=== PATIENT | male | born 1975 | race Asian ===

== ENCOUNTER 2023-10-06 22:27 | Inpatient (IN) | payer OTHER ==
[~2023-10-06] VITALS: Ht 162.6 cm; Wt 64.1 kg
[2023-10-06] MEDS: levetiracetam inj 1,000 MG in normal saline 100ml IV soln 90 ML IV ONE (08:00)
[2023-10-06 22:48] VITALS: PULSE 130; RESP 24; O2SAT 97
[2023-10-06] MEDS: propofol 1000mg/100ml bottle 100 ML IV SCH ×2 (22:55→23:02)
[2023-10-06] MEDS ORDERED: NORepinephrine 8mg/ 250ml NS 250 ML IV PRN (22:55)
[2023-10-06 22:59] LABS: ABG BASE EXCESS -22.2 mmol/L (-2.0-2.0); ABG OXYGEN SATURATION 92.3 % (94-97); ABG PH (T) 6.909 (7.340-7.440); ABG PO2 (T) 95.1 mmHg (75.0-100.0); ALLEN'S TEST Modified; FCOHb 0.3 % (0.0-3.9); FHHb 7.7 % (0.0-5.0); FMetHb 0.3 % (0.0-1.5); FO2Hb 91.7 % (94-97); MODE VENT - AC; PATIENT TEMPERATURE 35.8; PEEP 5 cm H2O; RESPIRATORY RATE 24 b/min; TIDAL VOLUME 400 mL; TOTAL HEMOGLOBIN 13.4 G/dl (14.0-17.9)
[2023-10-06] MEDS: furosemide 10 MG/1 ML 10ml inj IV ONE ×2 (23:22→23:59)
[2023-10-06] MEDS: labetalol 20mg/4ml (5mg/ml) syringe IV ONE (23:22)
[2023-10-06] MEDS: normal saline 1000ml 1,000 ML IV ONE (23:24)
[2023-10-06 23:28] LABS: BILIRUBIN,URINE NEGATIVE (Neg); CLARITY,URINE SLIGHTLY CLOUDY (Clear); COLOR,URINE STRAW (Yellow); GLUCOSE, URINE 250 mg/dl (Neg); KETONES,URINE NEGATIVE (Neg); LEUKOCYTE ESTERASE ,URINE NEGATIVE (Neg); NITRITES, URINE NEGATIVE (Neg); OCCULT BLOOD,URINE SMALL (Neg); PH,URINE 6.5 (4.8-8.0); PROTEIN,URINE 100 mg/dl (Neg); UROBILINOGEN,URINE 0.2 E.U/dL (0.2-1.0)
[2023-10-06] MEDS: LORazepam 2 mg/ml vial IV ONE ×2 (23:36→23:44)
[2023-10-06] MEDS: sodium bicarbonate (8.4%) inj. 50 MEQ in dextrose 5%-water 1,000 ML IV SCH (23:39)
[2023-10-06] MEDS: LORazepam 2 mg/ml vial ONE (23:44)
[2023-10-06] MEDS: levetiracetam inj 1,000 MG in normal saline 100ml IV soln 100 ML IV ONE (23:45)
[2023-10-06 23:48] LABS: BASOPHILS # (AUTO) 0.2 X10'3 (0-0.2); EOSINOPHILS # (AUTO) 0.8 X10'3 (0-0.9); EOSINOPHILS % (AUTO) 5.1 % (0-6); HEMATOCRIT 44.7 % (42.0-52.0); HEMOGLOBIN 14.1 g/dl (14.0-17.9); LYMPHOCYTES # (AUTO) 7.5 X10'3 (1.1-4.8); LYMPHOCYTES % (AUTO) 49.9 % (21-51); MEAN CORPUSCULAR HEMOGLOBIN 27.2 PG (27.0-31.0); MEAN CORPUSCULAR HGB CONC 31.5 g/dL (33.0-36.5); MEAN CORPUSCULAR VOLUME 86.4 FL (78-98); MEAN PLATELET VOLUME 8.3 FL (7.4-10.4); MONOCYTES # (AUTO) 1.3 X10'3 (0-0.9); MONOCYTES % (AUTO) 8.7 % (2-12); NEUTROPHILS # (AUTO) 5.3 X10'3 (1.8-7.7); NEUTROPHILS % (AUTO) 35.3 % (42-75); PLATELET COUNT 458 X10'3 (140-440); RED BLOOD COUNT 5.17 X10'6 (4.70-6.10); RED CELL DISTRIBUTION WIDTH 15.1 % (11.5-14.5); WHITE BLOOD COUNT 15.1 X10'3 (4.5-11.0)
[2023-10-06] MEDS: dexamethasone sod phosphate 10mg/ml inj IV STA (23:48)
[2023-10-06 23:53] LABS: UA COLLECTION TYPE FOLEY CATH
[2023-10-06 23:56] LABS: AMORPHOUS PHOSPHATES 1+; BACTERIA,URINE 1+ /HPF (Neg); MUCUS STRANDS FEW /LPF (Neg); SQUAMOUS EPITHELIAL CELL,UR FEW /LPF (FEW); TRANSITIONAL EPI CELLS,URINE MODERATE /HPF
[2023-10-07] VITALS (28 sets, daily range): BP systolic 80–151; BP diastolic 50–114; PULSE 73–94; RESP 20–29; O2SAT 92–100
[2023-10-07] MEDS ORDERED: iohexol 350MG/ML 100ml bottle IV ONE (00:24)
[2023-10-07 00:28] LABS: TOTAL CELLS COUNTED 100
[2023-10-07 00:30] LABS: PLATELET ESTIMATE INCREASED
[2023-10-07 00:55] LABS: APTT 28 SECONDS (22-32); PROTHROMBIN TIME 11.2 SECONDS (9.0-12.0)
[2023-10-07 00:56] LABS: ALBUMIN 0.9 G/DL (3.4-5.0); ALBUMIN/GLOBULIN RATIO 0.2 (1.1-1.5); ALKALINE PHOSPHATASE 120 IU/L (46-116); ANION GAP 8 (8-16); BILIRUBIN,TOTAL 0.4 MG/DL (0.1-1.0); BLOOD UREA NITROGEN 20 MG/DL (7-18); BUN/CREATININE RATIO 11.3 (10.0-20.0); CALCIUM 6.4 MG/DL (8.5-10.1); CHLORIDE 105 MMOL/L (99-107); CREATININE 1.77 MG/DL (0.60-1.10); GLUCOSE 377 MG/DL (70-104); SODIUM 141 MMOL/L (135-145); TOTAL CARBON DIOXIDE 27.8 MMOL/L (24-32); TOTAL PROTEIN 6.7 G/DL (6.4-8.2); eCRCL 42 ML/MIN; eGFR 41 ML/MIN
[2023-10-07 01:05] LABS: MAGNESIUM 2.1 MG/DL (1.5-2.4); PRO BRAIN NATRIURETIC PEPTIDE 48 PG/ML (0-125)
[2023-10-07 01:11] LABS: POTASSIUM 3.7 MMOL/L (3.5-5.1)
[2023-10-07 01:23] LABS: ALANINE AMINOTRANSFERASE 52 U/L (12-78); BILIRUBIN,DIRECT 0.1 MG/DL (0-0.3)
[2023-10-07 01:28] LABS: URINE AMPHETAMINE SCREEN NEGATIVE (Neg); URINE BARBITUATE SCREEN NEGATIVE (Neg); URINE BENZODIAZEPINES SCREEN NEGATIVE (Neg); URINE CANNABINOID SCREEN NEGATIVE (Neg); URINE COCAINE SCREEN NEGATIVE (Neg); URINE METHADONE SCREEN NEGATIVE (Neg); URINE OPIATE SCREEN NEGATIVE (Neg); URINE PHENCYCLIDINE SCREEN NEGATIVE (Neg)
[2023-10-07 01:57] LABS: ASPARTATE AMINO TRANSFERASE 57 U/L (10-37)
[2023-10-07] MEDS: LORazepam 2 mg/ml vial IV ONE ×3 (02:08→03:46)
[2023-10-07] MEDS: CefTRIAXone/D5W-Rocephin 1gm 50 ML IV ONE (03:25)
[2023-10-07 03:27] LABS: ABG HCO3 18.1 mmol/L (22.0-26.0); ABG OXYGEN SATURATION 99.2 % (94-97); ABG PCO2 (T) 34.8 mmHg (35.0-48.0); ABG PH (T) 7.332 (7.340-7.440); ABG PO2 (T) 256.4 mmHg (75.0-100.0); FCOHb 0.2 % (0.0-3.9); FHHb 0.8 % (0.0-5.0); FMetHb 0.3 % (0.0-1.5); FO2Hb 98.7 % (94-97); MODE ac/prvc; PATIENT TEMPERATURE 36.7; PEEP 12 cm H2O; RESPIRATORY RATE 24 b/min; TIDAL VOLUME 500 mL; TOTAL HEMOGLOBIN 13.5 G/dl (14.0-17.9)
[2023-10-07] MEDS: azithromycin/NS 500mg/250ml 250 ML IV ONE (03:30)
[2023-10-07] MEDS ORDERED: DEXTROSE 15 GM of carb/4 tabs (each vial/BOTTLE has 4 tablets) PO PRN ×2 (05:00)
[2023-10-07] MEDS ORDERED: glucagon, human recombinant 1mg kit SUBCUT PRN (05:00)
[2023-10-07] MEDS: MESSAGE TO PHARMACY PO ONE (05:06)
[2023-10-07 07:40] LABS: CREATINE KINASE 765 U/L (39-308); LIPASE 32 U/L (16-77); THYROID STIMULATING HORMONE 0.83 ulU/ml (0.34-4.50); URIC ACID 9.7 MG/DL (3.5-7.2)
[2023-10-07] MEDS ORDERED: dextrose 50%-water 50ml dispensing syringe IV ONE (08:00)
[2023-10-07] MEDS ORDERED: sodium bicarbonate (8.4%) 1 mEq/ml syringe ONE (08:00)
[2023-10-07] MEDS ORDERED: epiNEPHrine 0.1mg/ml 10ml syringe ONE (08:00)
[2023-10-07] MEDS ORDERED: sod chloride 0.9% 10ml flush syringe IV ONE (08:00)
[2023-10-07] MEDS ORDERED: flumazenil 0.1 mg/ml inj. IV ONE (08:00)
[2023-10-07 08:47] LABS: HIV ANTIBODY 1&2 RAPID NON-REACTIVE (Neg)
[2023-10-07] MEDS ORDERED: levetiracetam inj 1,000 MG in normal saline 100ml IV soln 90 ML IV SCH (08:50)
[2023-10-07 09:23] LABS: CALCIUM 6.4 MG/DL (8.5-10.1); MAGNESIUM 1.7 MG/DL (1.5-2.4)
[2023-10-07 09:25] LABS: BASOPHILS % (AUTO) 0.1 % (0-1); EOSINOPHILS % (AUTO) 0.1 % (0-6); HEMATOCRIT 35.5 % (42.0-52.0); HEMOGLOBIN 11.5 g/dl (14.0-17.9); LYMPHOCYTES # (AUTO) 0.4 X10'3 (1.1-4.8); LYMPHOCYTES % (AUTO) 3.2 % (21-51); MEAN CORPUSCULAR HEMOGLOBIN 26.6 PG (27.0-31.0); MEAN CORPUSCULAR HGB CONC 32.5 g/dL (33.0-36.5); MEAN CORPUSCULAR VOLUME 81.8 FL (78-98); MEAN PLATELET VOLUME 7.3 FL (7.4-10.4); MONOCYTES % (AUTO) 8.5 % (2-12); NEUTROPHILS # (AUTO) 10.6 X10'3 (1.8-7.7); NEUTROPHILS % (AUTO) 88.1 % (42-75); PLATELET COUNT 324 X10'3 (140-440); RED BLOOD COUNT 4.34 X10'6 (4.70-6.10); RED CELL DISTRIBUTION WIDTH 14.6 % (11.5-14.5)
[2023-10-07 09:25] LABS: ALANINE AMINOTRANSFERASE 38 U/L (12-78); ALBUMIN 2.6 G/DL (3.4-5.0); ALBUMIN/GLOBULIN RATIO 0.7 (1.1-1.5); ALKALINE PHOSPHATASE 92 IU/L (46-116); ANION GAP 13 (8-16); ASPARTATE AMINO TRANSFERASE 72 U/L (10-37); BILIRUBIN,TOTAL 0.4 MG/DL (0.1-1.0); BLOOD UREA NITROGEN 24 MG/DL (7-18); BUN/CREATININE RATIO 12.2 (10.0-20.0); CHLORIDE 104 MMOL/L (99-107); CREATININE 1.96 MG/DL (0.60-1.10); GLUCOSE 258 MG/DL (70-104); PHOSPHORUS 3.2 MG/DL (2.3-4.5); POTASSIUM 3.8 MMOL/L (3.5-5.1); SODIUM 142 MMOL/L (135-145); TOTAL CARBON DIOXIDE 25.5 MMOL/L (24-32); TOTAL PROTEIN 6.2 G/DL (6.4-8.2); eCRCL 38 ML/MIN; eGFR 37 ML/MIN
[2023-10-07] MEDS ORDERED: fentaNYL/PF 50MCG/1 ML 2ML syringe IV PRN (09:30)
[2023-10-07] MEDS: levetiracetam inj 1,000 MG in normal saline 100ml IV soln 100 ML IV SCH (09:41)
[2023-10-07 10:11] LABS: C DIFFICILE TOXINS A&B NEGATIVE (Neg)
[2023-10-07 10:12] LABS: C DIFF ANTIGEN NEGATIVE (NEGATIVE); C DIFF SPECIMEN=DIARRHEA? ACCEPTABLE
[2023-10-07 10:36] LABS: ABG BASE EXCESS -4.1 mmol/L (-2.0-2.0); ABG HCO3 17.8 mmol/L (22.0-26.0); ABG OXYGEN SATURATION 98.2 % (94-97); ABG PH (T) 7.502 (7.340-7.440); ABG PO2 (T) 98.2 mmHg (75.0-100.0); ALLEN'S TEST POSITIVE; FCOHb 0.4 % (0.0-3.9); FHHb 1.8 % (0.0-5.0); FMetHb 0.3 % (0.0-1.5); FO2Hb 97.5 % (94-97); MODE PRVC; PATIENT TEMPERATURE 35.7; RESPIRATORY RATE 24 b/min; TIDAL VOLUME 500 mL; TOTAL HEMOGLOBIN 12.3 G/dl (14.0-17.9)
[2023-10-07] MEDS: pantoprazole 40 MG vial IV SCH (11:05)
[2023-10-07] MEDS: insulin Lispro (HumaLOG) vial - multi-dose SQ SCH (11:05)
[2023-10-07] MEDS: midazolam 100mg in NS 100ml 100 ML IV PRN (11:33)
[2023-10-07] MEDS: CefTRIAXone/D5W-Rocephin 1gm 50 ML IV SCH (11:55)
[2023-10-07] MEDS: azithromycin/NS 500mg/250ml 250 ML IV SCH (11:55)
[2023-10-07 12:26] LABS: HEMOGLOBIN A1C 6.7 % (4.5-6.2)
[2023-10-07 14:21] LABS: ALBUMIN 2.4 G/DL (3.4-5.0); ANION GAP 14 (8-16); BLOOD UREA NITROGEN 23 MG/DL (7-18); BUN/CREATININE RATIO 13.9 (10.0-20.0); CALCIUM 6.3 MG/DL (8.5-10.1); CHLORIDE 104 MMOL/L (99-107); CREATINE KINASE 762 U/L (39-308); CREATININE 1.65 MG/DL (0.60-1.10); GLUCOSE 206 MG/DL (70-104); MAGNESIUM 1.8 MG/DL (1.5-2.4); PHOSPHORUS 4.5 MG/DL (2.3-4.5); POTASSIUM 3.6 MMOL/L (3.5-5.1); SODIUM 141 MMOL/L (135-145); TOTAL CARBON DIOXIDE 22.6 MMOL/L (24-32); TRIGLYCERIDES 109 MG/DL (20-135); eCRCL 45 ML/MIN; eGFR 45 ML/MIN
[2023-10-07 14:47] LABS: ABG BASE EXCESS -3.9 mmol/L (-2.0-2.0); ABG HCO3 21.4 mmol/L (22.0-26.0); ABG OXYGEN SATURATION 97.3 % (94-97); ABG PCO2 (T) 37.4 mmHg (35.0-48.0); ABG PO2 (T) 93.2 mmHg (75.0-100.0); ALLEN'S TEST POSITIVE; FCOHb 0.4 % (0.0-3.9); FHHb 2.7 % (0.0-5.0); FMetHb 0.3 % (0.0-1.5); FO2Hb 96.6 % (94-97); MODE PRVC; PATIENT TEMPERATURE 35.5; RESPIRATORY RATE 20 b/min; TIDAL VOLUME 350 mL; TOTAL HEMOGLOBIN 11.4 G/dl (14.0-17.9)
[2023-10-07] MEDS ORDERED: NO HOME MEDS (15:57)
[2023-10-07 18:30] LABS: TRIGLYCERIDES 344 MG/DL (20-135)
[2023-10-07] MEDS: insulin glargine (Lantus) pen - multi-dose SQ SCH (21:05)
[2023-10-08] VITALS (36 sets, daily range): BP systolic 11–166; BP diastolic 71–110; PULSE 72–108; RESP 17–33; O2SAT 46–100
[2023-10-08 01:34] LABS: BASOPHILS % (AUTO) 0.1 % (0-1); EOSINOPHILS % (AUTO) 0 % (0-6); HEMATOCRIT 28.2 % (42.0-52.0); HEMOGLOBIN 9.3 g/dl (14.0-17.9); LYMPHOCYTES # (AUTO) 0.6 X10'3 (1.1-4.8); LYMPHOCYTES % (AUTO) 5.1 % (21-51); MEAN CORPUSCULAR HEMOGLOBIN 27.1 PG (27.0-31.0); MEAN CORPUSCULAR HGB CONC 33.1 g/dL (33.0-36.5); MEAN CORPUSCULAR VOLUME 81.8 FL (78-98); MEAN PLATELET VOLUME 7.4 FL (7.4-10.4); MONOCYTES # (AUTO) 1.1 X10'3 (0-0.9); MONOCYTES % (AUTO) 8.8 % (2-12); NEUTROPHILS # (AUTO) 10.6 X10'3 (1.8-7.7); PLATELET COUNT 241 X10'3 (140-440); RED BLOOD COUNT 3.45 X10'6 (4.70-6.10); RED CELL DISTRIBUTION WIDTH 14.8 % (11.5-14.5); WHITE BLOOD COUNT 12.3 X10'3 (4.5-11.0)
[2023-10-08 01:46] LABS: ALANINE AMINOTRANSFERASE 28 U/L (12-78); ALBUMIN 2.2 G/DL (3.4-5.0); ALBUMIN/GLOBULIN RATIO 0.7 (1.1-1.5); ALKALINE PHOSPHATASE 64 IU/L (46-116); ANION GAP 16 (8-16); ASPARTATE AMINO TRANSFERASE 40 U/L (10-37); BILIRUBIN,TOTAL 0.5 MG/DL (0.1-1.0); BLOOD UREA NITROGEN 24 MG/DL (7-18); BUN/CREATININE RATIO 13.9 (10.0-20.0); CALCIUM 6.1 MG/DL (8.5-10.1); CHLORIDE 110 MMOL/L (99-107); CREATINE KINASE 648 U/L (39-308); CREATININE 1.73 MG/DL (0.60-1.10); GLUCOSE 148 MG/DL (70-104); MAGNESIUM 1.6 MG/DL (1.5-2.4); PHOSPHORUS 3.5 MG/DL (2.3-4.5); POTASSIUM 3.8 MMOL/L (3.5-5.1); SODIUM 149 MMOL/L (135-145); TOTAL CARBON DIOXIDE 22.8 MMOL/L (24-32); TOTAL PROTEIN 5.5 G/DL (6.4-8.2); TRIGLYCERIDES 171 MG/DL (20-135); eCRCL 43 ML/MIN; eGFR 42 ML/MIN
[2023-10-08 03:36] LABS: ABG BASE EXCESS -3.2 mmol/L (-2.0-2.0); ABG HCO3 20.6 mmol/L (22.0-26.0); ABG OXYGEN SATURATION 98.6 % (94-97); ABG PCO2 (T) 30.6 mmHg (35.0-48.0); ABG PH (T) 7.441 (7.340-7.440); ABG PO2 (T) 131.2 mmHg (75.0-100.0); ALLEN'S TEST Modified; FCOHb 0.3 % (0.0-3.9); FHHb 1.4 % (0.0-5.0); FMetHb 0.3 % (0.0-1.5); MODE ac/prvc; PEEP 12 cm H2O; RESPIRATORY RATE 20 b/min; TIDAL VOLUME 350 mL; TOTAL HEMOGLOBIN 9.9 G/dl (14.0-17.9)
[2023-10-08] MEDS: hyDRALAzine 10mg tablet PO SCH (11:51)
[2023-10-08] MEDS: metoprolol tartrate 50mg tablet PO SCH (11:52)
[2023-10-08 13:44] LABS: ABG BASE EXCESS -4.2 mmol/L (-2.0-2.0); ABG HCO3 19.4 mmol/L (22.0-26.0); ABG PCO2 (T) 29.8 mmHg (35.0-48.0); ABG PH (T) 7.428 (7.340-7.440); ABG PO2 (T) 84.8 mmHg (75.0-100.0); ALLEN'S TEST POSITIVE; FCOHb 0.2 % (0.0-3.9); FMetHb 0.3 % (0.0-1.5); FO2Hb 96.5 % (94-97); MODE VENT - AC/PRVC; PATIENT TEMPERATURE 36.2; RESPIRATORY RATE 20 b/min; TIDAL VOLUME 350 mL; TOTAL HEMOGLOBIN 11.1 G/dl (14.0-17.9)
[2023-10-08] MEDS: mineral oil/petrolatum ophthal oint EACHEYE SCH (14:00)
[2023-10-08] MEDS: labetalol 20mg/4ml (5mg/ml) syringe IV PRN (16:13)
[2023-10-08] MEDS: heparin, porcine 5000 units/ml vial SQ SCH (16:14)
[2023-10-08] MEDS: FENTANYL-0.9 % NACL/PF 100 ML IV PRN (16:19)
[2023-10-09] VITALS (35 sets, daily range): BP systolic 115–184; BP diastolic 62–121; PULSE 80–95; RESP 16–24; O2SAT 86–100
[2023-10-09 03:24] LABS: ABG BASE EXCESS -3.9 mmol/L (-2.0-2.0); ABG OXYGEN SATURATION 95.4 % (94-97); ABG PCO2 (T) 36.7 mmHg (35.0-48.0); ABG PH (T) 7.373 (7.340-7.440); ABG PO2 (T) 77.8 mmHg (75.0-100.0); ALLEN'S TEST Modified; FCOHb 0.3 % (0.0-3.9); FHHb 4.6 % (0.0-5.0); FMetHb 0.3 % (0.0-1.5); FO2Hb 94.8 % (94-97); MODE ac/prvc; PATIENT TEMPERATURE 36.5; PEEP 12 cm H2O; RESPIRATORY RATE 20 b/min; TIDAL VOLUME 350 mL; TOTAL HEMOGLOBIN 10.6 G/dl (14.0-17.9)
[2023-10-09 03:29] LABS: BASOPHILS % (AUTO) 0.2 % (0-1); EOSINOPHILS % (AUTO) 0.2 % (0-6); HEMATOCRIT 28.7 % (42.0-52.0); HEMOGLOBIN 9.4 g/dl (14.0-17.9); LYMPHOCYTES % (AUTO) 8.3 % (21-51); MEAN CORPUSCULAR HGB CONC 32.6 g/dL (33.0-36.5); MEAN CORPUSCULAR VOLUME 82.6 FL (78-98); MONOCYTES # (AUTO) 1.4 X10'3 (0-0.9); MONOCYTES % (AUTO) 11.1 % (2-12); NEUTROPHILS # (AUTO) 10.2 X10'3 (1.8-7.7); NEUTROPHILS % (AUTO) 80.2 % (42-75); PLATELET COUNT 285 X10'3 (140-440); RED BLOOD COUNT 3.48 X10'6 (4.70-6.10); RED CELL DISTRIBUTION WIDTH 15.2 % (11.5-14.5); WHITE BLOOD COUNT 12.7 X10'3 (4.5-11.0)
[2023-10-09 03:49] LABS: ALANINE AMINOTRANSFERASE 26 U/L (12-78); ALBUMIN 2.4 G/DL (3.4-5.0); ALBUMIN/GLOBULIN RATIO 0.7 (1.1-1.5); ALKALINE PHOSPHATASE 66 IU/L (46-116); ANION GAP 10 (8-16); ASPARTATE AMINO TRANSFERASE 50 U/L (10-37); BILIRUBIN,TOTAL 0.5 MG/DL (0.1-1.0); BLOOD UREA NITROGEN 29 MG/DL (7-18); BUN/CREATININE RATIO 16.4 (10.0-20.0); CALCIUM 6.4 MG/DL (8.5-10.1); CHLORIDE 111 MMOL/L (99-107); CREATININE 1.77 MG/DL (0.60-1.10); GLUCOSE 115 MG/DL (70-104); MAGNESIUM 1.9 MG/DL (1.5-2.4); PHOSPHORUS 4.2 MG/DL (2.3-4.5); POTASSIUM 3.9 MMOL/L (3.5-5.1); SODIUM 145 MMOL/L (135-145); TOTAL CARBON DIOXIDE 24.4 MMOL/L (24-32); eCRCL 42 ML/MIN; eGFR 41 ML/MIN
[2023-10-09] MEDS: dextrose 50%-water 50ml dispensing syringe IV PRN ×2 (09:13→18:03)
[2023-10-09] MEDS: dextrose 50%-water 50ml dispensing syringe IV ONE (18:00)
[2023-10-09] MEDS: ampicillin inj 2 GM in normal saline 100ml IV soln 100 ML IV SCH (20:35)
[2023-10-10] VITALS (36 sets, daily range): BP systolic 127–198; BP diastolic 68–130; PULSE 79–99; RESP 14–29; O2SAT 88–100
[2023-10-10 03:45] LABS: BASOPHILS # (AUTO) 0.1 X10'3 (0-0.2); BASOPHILS % (AUTO) 0.7 % (0-1); EOSINOPHILS # (AUTO) 0.3 X10'3 (0-0.9); EOSINOPHILS % (AUTO) 2.4 % (0-6); HEMATOCRIT 30.2 % (42.0-52.0); HEMOGLOBIN 9.8 g/dl (14.0-17.9); LYMPHOCYTES # (AUTO) 0.9 X10'3 (1.1-4.8); LYMPHOCYTES % (AUTO) 5.9 % (21-51); MEAN CORPUSCULAR HGB CONC 32.5 g/dL (33.0-36.5); MEAN CORPUSCULAR VOLUME 83.2 FL (78-98); MEAN PLATELET VOLUME 7.9 FL (7.4-10.4); MONOCYTES # (AUTO) 1.2 X10'3 (0-0.9); MONOCYTES % (AUTO) 8.1 % (2-12); NEUTROPHILS # (AUTO) 11.9 X10'3 (1.8-7.7); NEUTROPHILS % (AUTO) 82.9 % (42-75); PLATELET COUNT 296 X10'3 (140-440); RED BLOOD COUNT 3.63 X10'6 (4.70-6.10); WHITE BLOOD COUNT 14.4 X10'3 (4.5-11.0)
[2023-10-10 04:07] LABS: ALANINE AMINOTRANSFERASE 26 U/L (12-78); ALBUMIN 2.2 G/DL (3.4-5.0); ALBUMIN/GLOBULIN RATIO 0.5 (1.1-1.5); ALKALINE PHOSPHATASE 70 IU/L (46-116); BILIRUBIN,TOTAL 0.7 MG/DL (0.1-1.0); BLOOD UREA NITROGEN 23 MG/DL (7-18); BUN/CREATININE RATIO 19.2 (10.0-20.0); CALCIUM 6.4 MG/DL (8.5-10.1); GLUCOSE 167 MG/DL (70-104); PHOSPHORUS 3.1 MG/DL (2.3-4.5); TOTAL CARBON DIOXIDE 21.3 MMOL/L (24-32); TOTAL PROTEIN 6.4 G/DL (6.4-8.2); eCRCL 62 ML/MIN; eGFR 64 ML/MIN
[2023-10-10 04:43] LABS: ANION GAP 15 (8-16); ASPARTATE AMINO TRANSFERASE 59 U/L (10-37); CHLORIDE 108 MMOL/L (99-107); POTASSIUM 3.9 MMOL/L (3.5-5.1); SODIUM 144 MMOL/L (135-145)
[2023-10-10 05:41] LABS: ABG BASE EXCESS -8.3 mmol/L (-2.0-2.0); ABG HCO3 17.5 mmol/L (22.0-26.0); ABG OXYGEN SATURATION 93.3 % (94-97); ABG PCO2 (T) 36.2 mmHg (35.0-48.0); ABG PO2 (T) 70.8 mmHg (75.0-100.0); ALLEN'S TEST Modified; FCOHb 0.4 % (0.0-3.9); FHHb 6.7 % (0.0-5.0); FMetHb 0.3 % (0.0-1.5); FO2Hb 92.6 % (94-97); MODE Vent-AC/PRVC; PATIENT TEMPERATURE 36.3; PEEP 12 cm H2O; RESPIRATORY RATE 14 b/min; TIDAL VOLUME 500 mL; TOTAL HEMOGLOBIN 11.1 G/dl (14.0-17.9)
[2023-10-10] MEDS: CefTRIAXone/D5W-Rocephin 1gm 50 ML IV SCH (11:05)
[2023-10-10] MEDS: minoxidil 2.5mg tablet OGT SCH (11:06)
[2023-10-10] MEDS ORDERED: DEXTROSE 15 GM of carb/4 tabs (each vial/BOTTLE has 4 tablets) OGT PRN ×2 (15:50)
[2023-10-10] MEDS ORDERED: insulin regular, human U-100 3ml vial - multi-dose SQ SCH (15:55)
[2023-10-10] MEDS: metoprolol tartrate 50mg tablet OGT SCH (19:57)
[2023-10-11] VITALS (36 sets, daily range): BP systolic 97–191; BP diastolic 42–105; PULSE 76–105; RESP 14–22; O2SAT 90–100
[2023-10-11] MEDS: propofol 1000mg/100ml bottle 100 ML IV SCH (02:55)
[2023-10-11 03:40] LABS: ABG BASE EXCESS -6.6 mmol/L (-2.0-2.0); ABG OXYGEN SATURATION 95.1 % (94-97); ABG PCO2 (T) 36.5 mmHg (35.0-48.0); ABG PH (T) 7.329 (7.340-7.440); ABG PO2 (T) 77.2 mmHg (75.0-100.0); ALLEN'S TEST Modified; FCOHb 0.3 % (0.0-3.9); FHHb 4.9 % (0.0-5.0); FMetHb 0.3 % (0.0-1.5); FO2Hb 94.5 % (94-97); MODE PRVC; PATIENT TEMPERATURE 36.2; PEEP 12 cm H2O; RESPIRATORY RATE 14 b/min; TIDAL VOLUME 500 mL; TOTAL HEMOGLOBIN 10.4 G/dl (14.0-17.9)
[2023-10-11 04:37] LABS: BASOPHILS # (AUTO) 0.1 X10'3 (0-0.2); BASOPHILS % (AUTO) 0.6 % (0-1); EOSINOPHILS # (AUTO) 0.5 X10'3 (0-0.9); EOSINOPHILS % (AUTO) 3.6 % (0-6); HEMATOCRIT 29.2 % (42.0-52.0); HEMOGLOBIN 9.5 g/dl (14.0-17.9); LYMPHOCYTES # (AUTO) 0.7 X10'3 (1.1-4.8); LYMPHOCYTES % (AUTO) 5.4 % (21-51); MEAN CORPUSCULAR HGB CONC 32.7 g/dL (33.0-36.5); MEAN CORPUSCULAR VOLUME 82.7 FL (78-98); MEAN PLATELET VOLUME 7.9 FL (7.4-10.4); MONOCYTES % (AUTO) 7.6 % (2-12); NEUTROPHILS # (AUTO) 10.9 X10'3 (1.8-7.7); NEUTROPHILS % (AUTO) 82.8 % (42-75); PLATELET COUNT 292 X10'3 (140-440); RED BLOOD COUNT 3.53 X10'6 (4.70-6.10); RED CELL DISTRIBUTION WIDTH 15.3 % (11.5-14.5); WHITE BLOOD COUNT 13.1 X10'3 (4.5-11.0)
[2023-10-11 04:42] LABS: ALANINE AMINOTRANSFERASE 25 U/L (12-78); ALBUMIN 1.9 G/DL (3.4-5.0); ALBUMIN/GLOBULIN RATIO 0.4 (1.1-1.5); ALKALINE PHOSPHATASE 77 IU/L (46-116); ANION GAP 12 (8-16); ASPARTATE AMINO TRANSFERASE 51 U/L (10-37); BILIRUBIN,TOTAL 0.5 MG/DL (0.1-1.0); BLOOD UREA NITROGEN 22 MG/DL (7-18); BUN/CREATININE RATIO 21.4 (10.0-20.0); CALCIUM 6.4 MG/DL (8.5-10.1); CHLORIDE 108 MMOL/L (99-107); CREATININE 1.03 MG/DL (0.60-1.10); GLUCOSE 108 MG/DL (70-104); PREALBUMIN 11.1 MG/DL (19-36); SODIUM 143 MMOL/L (135-145); TOTAL CARBON DIOXIDE 22.8 MMOL/L (24-32); TOTAL PROTEIN 6.2 G/DL (6.4-8.2); TRIGLYCERIDES 469 MG/DL (20-135); eCRCL 73 ML/MIN; eGFR 77 ML/MIN
[2023-10-11 04:57] LABS: POTASSIUM 4.1 MMOL/L (3.5-5.1)
[2023-10-11 08:52] LABS: PEEP 12 cm H2O
[2023-10-12] VITALS (34 sets, daily range): BP systolic 114–178; BP diastolic 62–102; PULSE 78–127; RESP 13–24; O2SAT 92–100
[2023-10-12 02:10] LABS: BASOPHILS # (AUTO) 0.1 X10'3 (0-0.2); BASOPHILS % (AUTO) 0.4 % (0-1); EOSINOPHILS # (AUTO) 0.5 X10'3 (0-0.9); EOSINOPHILS % (AUTO) 4.4 % (0-6); HEMATOCRIT 28.9 % (42.0-52.0); HEMOGLOBIN 9.4 g/dl (14.0-17.9); LYMPHOCYTES # (AUTO) 0.7 X10'3 (1.1-4.8); MEAN CORPUSCULAR HEMOGLOBIN 26.8 PG (27.0-31.0); MEAN CORPUSCULAR HGB CONC 32.5 g/dL (33.0-36.5); MEAN CORPUSCULAR VOLUME 82.5 FL (78-98); MEAN PLATELET VOLUME 7.9 FL (7.4-10.4); MONOCYTES # (AUTO) 1.1 X10'3 (0-0.9); MONOCYTES % (AUTO) 9.5 % (2-12); NEUTROPHILS # (AUTO) 9.5 X10'3 (1.8-7.7); NEUTROPHILS % (AUTO) 79.7 % (42-75); PLATELET COUNT 309 X10'3 (140-440); RED BLOOD COUNT 3.51 X10'6 (4.70-6.10); RED CELL DISTRIBUTION WIDTH 15.1 % (11.5-14.5); WHITE BLOOD COUNT 11.9 X10'3 (4.5-11.0)
[2023-10-12 02:35] LABS: ALANINE AMINOTRANSFERASE 25 U/L (12-78); ALBUMIN 1.8 G/DL (3.4-5.0); ALBUMIN/GLOBULIN RATIO 0.4 (1.1-1.5); ALKALINE PHOSPHATASE 82 IU/L (46-116); ANION GAP 12 (8-16); BILIRUBIN,TOTAL 0.4 MG/DL (0.1-1.0); BLOOD UREA NITROGEN 16 MG/DL (7-18); BUN/CREATININE RATIO 21.1 (10.0-20.0); CALCIUM 6.6 MG/DL (8.5-10.1); CHLORIDE 108 MMOL/L (99-107); CREATININE 0.76 MG/DL (0.60-1.10); PHOSPHORUS 2.8 MG/DL (2.3-4.5); SODIUM 143 MMOL/L (135-145); TOTAL PROTEIN 6.1 G/DL (6.4-8.2); eCRCL 98 ML/MIN; eGFR > 90 ML/MIN
[2023-10-12 03:02] LABS: ASPARTATE AMINO TRANSFERASE 30 U/L (10-37); GLUCOSE 105 MG/DL (70-104); POTASSIUM 3.4 MMOL/L (3.5-5.1)
[2023-10-12 04:21] LABS: ABG BASE EXCESS -3.5 mmol/L (-2.0-2.0); ABG HCO3 22.1 mmol/L (22.0-26.0); ABG OXYGEN SATURATION 94.4 % (94-97); ABG PH (T) 7.355 (7.340-7.440); ABG PO2 (T) 69.2 mmHg (75.0-100.0); ALLEN'S TEST Modified; FCOHb 0.2 % (0.0-3.9); FHHb 5.6 % (0.0-5.0); FMetHb 0.3 % (0.0-1.5); FO2Hb 93.9 % (94-97); MODE VENT - prvc; PATIENT TEMPERATURE 35.7; PEEP 5 cm H2O; RESPIRATORY RATE 14 b/min; TIDAL VOLUME 500 mL; TOTAL HEMOGLOBIN 10.5 G/dl (14.0-17.9)
[2023-10-12] MEDS ORDERED: VECuronium br 10mg inj. IV ONE (10:20)
[2023-10-12] MEDS: propofol 1000mg/100ml bottle 100 ML IV SCH (11:24)
[2023-10-13] VITALS (29 sets, daily range): BP systolic 120–187; BP diastolic 57–81; PULSE 73–110; RESP 14–33; O2SAT 69–100
[2023-10-13 02:31] LABS: BASOPHILS % (AUTO) 0.3 % (0-1); EOSINOPHILS # (AUTO) 0.4 X10'3 (0-0.9); EOSINOPHILS % (AUTO) 4.6 % (0-6); HEMATOCRIT 26.2 % (42.0-52.0); HEMOGLOBIN 8.8 g/dl (14.0-17.9); LYMPHOCYTES # (AUTO) 0.5 X10'3 (1.1-4.8); LYMPHOCYTES % (AUTO) 5.4 % (21-51); MEAN CORPUSCULAR HEMOGLOBIN 27.5 PG (27.0-31.0); MEAN CORPUSCULAR HGB CONC 33.7 g/dL (33.0-36.5); MEAN CORPUSCULAR VOLUME 81.5 FL (78-98); MEAN PLATELET VOLUME 7.8 FL (7.4-10.4); MONOCYTES # (AUTO) 0.9 X10'3 (0-0.9); MONOCYTES % (AUTO) 9.8 % (2-12); NEUTROPHILS # (AUTO) 7.1 X10'3 (1.8-7.7); NEUTROPHILS % (AUTO) 79.9 % (42-75); PLATELET COUNT 297 X10'3 (140-440); RED BLOOD COUNT 3.21 X10'6 (4.70-6.10); RED CELL DISTRIBUTION WIDTH 15.1 % (11.5-14.5); WHITE BLOOD COUNT 8.9 X10'3 (4.5-11.0)
[2023-10-13 02:47] LABS: ALBUMIN 1.5 G/DL (3.4-5.0); ALBUMIN/GLOBULIN RATIO 0.4 (1.1-1.5); ALKALINE PHOSPHATASE 131 IU/L (46-116); ANION GAP 8 (8-16); BILIRUBIN,TOTAL 0.3 MG/DL (0.1-1.0); BLOOD UREA NITROGEN 16 MG/DL (7-18); BUN/CREATININE RATIO 21.6 (10.0-20.0); CALCIUM 6.8 MG/DL (8.5-10.1); CHLORIDE 107 MMOL/L (99-107); CREATININE 0.74 MG/DL (0.60-1.10); MAGNESIUM 1.9 MG/DL (1.5-2.4); PHOSPHORUS 2.1 MG/DL (2.3-4.5); SODIUM 142 MMOL/L (135-145); TOTAL PROTEIN 5.7 G/DL (6.4-8.2); eCRCL 101 ML/MIN; eGFR > 90 ML/MIN
[2023-10-13 03:01] LABS: ALANINE AMINOTRANSFERASE 30 U/L (12-78); ASPARTATE AMINO TRANSFERASE 43 U/L (10-37); GLUCOSE 177 MG/DL (70-104)
[2023-10-13 03:09] LABS: POTASSIUM 2.7 MMOL/L (3.5-5.1)
[2023-10-13] MEDS ORDERED: potassium Cl 20 mEq SR tablet PO PRN ×2 (03:15)
[2023-10-13] MEDS ORDERED: magnesium 4gm in 100ml NS 100 ML IV PRN (03:15)
[2023-10-13] MEDS ORDERED: magnesium 2GM in 50ml NS 50 ML IV PRN (03:15)
[2023-10-13 03:32] LABS: ABG BASE EXCESS -0.4 mmol/L (-2.0-2.0); ABG OXYGEN SATURATION 93.9 % (94-97); ABG PCO2 (T) 42.7 mmHg (35.0-48.0); ABG PH (T) 7.381 (7.340-7.440); ABG PO2 (T) 67.8 mmHg (75.0-100.0); ALLEN'S TEST POSITIVE; FCOHb 0.3 % (0.0-3.9); FHHb 6.1 % (0.0-5.0); FMetHb 0.3 % (0.0-1.5); FO2Hb 93.3 % (94-97); MODE VENT - prvc; PEEP 8 cm H2O; RESPIRATORY RATE 14 b/min; TIDAL VOLUME 500 mL; TOTAL HEMOGLOBIN 9.8 G/dl (14.0-17.9)
[2023-10-13] MEDS: potassium Cl 40MEQ/270ML bag 270 ML IV PRN (03:34)
[2023-10-13 10:15] LABS: TRIGLYCERIDES 656 MG/DL (20-135)
[2023-10-13] MEDS ORDERED: PCA WASTE DOCUMENTATION 1 MG ML MC SCH (15:05)
[2023-10-13] MEDS ORDERED: LORazepam 2 mg/ml vial IM PRN (15:20)
[2023-10-13] MEDS ORDERED: morphine 10mg/ml inj. IV PRN (15:20)
[2023-10-13] MEDS: LORazepam 2 mg/ml vial IV PRN (15:31)
[2023-10-13] MEDS ORDERED: morphine/NS PCA 1mg/ml 50ml 50 ML IV SCH (17:00)
[2023-10-13] MEDS: morphine 10mg/ml inj. IV PRN (17:23)
[2023-10-13] MEDS: scopolamine 1MG/72H patch 1 PATCH PATCH.TD.3 TD SCH (18:30)
[2023-10-14] VITALS (21 sets, daily range): BP systolic 118–170; BP diastolic 57–90; PULSE 102–122; RESP 17–45; TEMP 97; O2SAT 43–82
[2023-10-14] MEDS: LORazepam 2 mg/ml vial IV PRN (07:08)
[2023-10-14] MEDS: propofol 1000mg/100ml bottle 100 ML IV SCH (07:11)
[2023-10-15] MEDS: morphine 10mg/0.5ml (conc. morphine) oral syringe PO PRN (00:43)
[2023-10-15 05:20] VITALS: RESP 24
== END 2023-10-15 07:39 | DRG 870 ==
LOC: ER 22:28 → ED HOLD 10-07 04:57 → EDBEDREQ 10-07 05:30 → EDBEDREQTM 10-07 05:30 → CICU 2S 10-07 05:55 → SUR 3N 10-14 20:14
PROVIDERS: ADMIT Internal Medicine; ATTEND Family Medicine
PROC: 5A1955Z Respiratory Ventilation, Greater than 96 Consecutive Hours (ICD-10-PCS; principal; 2023-10-07)
PROC: 5A12012 Performance of Cardiac Output, Single, Manual (ICD-10-PCS; 2023-10-07)
PROC: 06HY33Z Insertion of Infusion Device into Lower Vein, Percutaneous Approach (ICD-10-PCS; 2023-10-07)
PROC: 4A00X4Z Measurement of Central Nervous Electrical Activity, External Approach (ICD-10-PCS; 2023-10-07)
PROC: 0BH17EZ Insertion of Endotracheal Airway into Trachea, Via Natural or Artificial Opening (ICD-10-PCS; 2023-10-07)
PROC: B32T1ZZ Computerized Tomography (CT Scan) of Left Pulmonary Artery using Low Osmolar Contrast (ICD-10-PCS; 2023-10-07)
PROC: B3201ZZ Computerized Tomography (CT Scan) of Thoracic Aorta using Low Osmolar Contrast (ICD-10-PCS; 2023-10-07)
PROC: B32S1ZZ Computerized Tomography (CT Scan) of Right Pulmonary Artery using Low Osmolar Contrast (ICD-10-PCS; 2023-10-07)
DX: A41.9 Sepsis, unspecified organism (principal); J18.9 Pneumonia, unspecified organism; J96.01 Acute respiratory failure with hypoxia; J96.02 Acute respiratory failure with hypercapnia; R65.21 Severe sepsis with septic shock; N17.9 Acute kidney failure, unspecified; N39.0 Urinary tract infection, site not specified; G93.1 Anoxic brain damage, not elsewhere classified; E87.20 Acidosis, unspecified; I50.20 Unspecified systolic (congestive) heart failure; Z20.822 Contact with and (suspected) exposure to COVID-19; E86.1 Hypovolemia; N18.30 Chronic kidney disease, stage 3 unspecified; I46.9 Cardiac arrest, cause unspecified; E83.51 Hypocalcemia; D70.9 Neutropenia, unspecified; F19.10 Other psychoactive substance abuse, uncomplicated; F10.10 Alcohol abuse, uncomplicated; M10.9 Gout, unspecified; G25.3 Myoclonus; Z66 Do not resuscitate; G93.89 Other specified disorders of brain; K76.0 Fatty (change of) liver, not elsewhere classified; R57.0 Cardiogenic shock; R56.9 Unspecified convulsions; Z51.5 Encounter for palliative care; Z86.73 Personal history of transient ischemic attack (TIA), and cerebral infarction without residual deficits
CPT/HCPCS: 36415; 36600; 70450; 71045; 71275; 80048; 80053; 80076; 80305; 81001; 82550; 82803; 82948; 83036; 83605; 83690; 83735; 83880; 84100; 84132; 84134; 84145; 84443; 84478; 84484; 84550; 85007; 85018; 85025; 85610; 85730; 86703; 87040; 87070; 87077; 87088; 87186; 87324; 87449; 87502; 87503; 87634; 87811; 92950; 93005; 93306; 94002; 94003; 94760; 95720; 96365; 96367; 96375; 99291; A6213; C1751; C1758; C9113; G0378; J0171; J0290; J0456; J0696; J1100; J1644; J1815; J1940; J1953; J2060; J2274; J2704; J3010; J3480; J3490; J7030; J7070; Q9967